=== PATIENT | male | born 1995 | race Caucasian/White ===

== ENCOUNTER 2022-02-25 18:14 | Emergency (ER) | payer OTHER, SELFPAY ==
[2022-02-25 18:15] VITALS: BP 144/99; PULSE 103; RESP 18; TEMP 36.8; O2SAT 97; BMI 30.3
--- NOTE | 2022-02-25 18:24 | PC.NURSE ---
ED MD AT BEDSIDE FOR EVALUATION
--- NOTE | 2022-02-25 18:28 | US_ITS ---
PROCEDURE INFORMATION: Exam: US Scrotum Exam date and time: 02/25/2022 6:46 PM Age: 26 years old Clinical indication: Scrotum pain; Patient HX: Lt test pain x 1 wk-- no fever swelling or inj TECHNIQUE: Imaging protocol: Real-time ultrasound of the scrotum and contents with color Doppler and image documentation. COMPARISON: ABDPELW CT ABD PELVIS W/ CONTRAST 06/27/2015 11:05 AM FINDINGS: Right testicle: Normal. No mass. No torsion. Normal vascular flow. 4.7 x 2.1 x 3.5 cm. Left testicle: Normal. No mass. No torsion. Normal vascular flow. 4.5 x 2.5 x 3.3 cm. Epididymides: Left epididymis is hypervascular suggesting epididymitis. Scrotum: Normal. IMPRESSION: 1. Left epididymitis. 2. No evidence of torsion.
--- NOTE | 2022-02-25 18:28 | PC.NURSE ---
RADIOLOGY NOTIFIED OF U/S ORDER
--- NOTE | 2022-02-25 18:31 | HMH.EDGENADL ---
ED Disposition Clinical Impression: Epididymitis Disposition: Home, Self-Care Condition on Discharge: Good Instructions: DI for Epididymitis Prescriptions: Doxycycline Monohydrate [Doxycycline Stoddard 100mg Tab] 100 mg PO Q12 #20 tab Transmission Status: Pending to [id number] Ibuprofen [Ibuprofen 800mg Tablet] 800 mg PO TIDP PRN #20 tab PRN Reason: Moderate Pain Transmission Status: Pending to [id number] Referrals: Tahir Berrios [Primary Care Provider] - Robson Jose MD [Staff Physician] - - Critical Care Critical Care Time: No Attestation: On , the high probability of a clinically significant, sudden or life threatening deterioration of the following system(s) required my full and direct attention, intervention and personal management. The time I documented below is in addition to time spent performing reported procedures but includes the following listed in this critical care notation. Medical Decision Making - Medical Records Medical records reviewed: Yes: I reviewed the patient's medical records. - Drake Inquiry Pt receiving controlled substance: No Vital Signs: 02/25/22 18:15 Temperature 98.3 F Temperature Source Oral Pulse Rate [Left Radial] 103 H Respiratory Rate 18 Blood Pressure [Right Arm] 144/99 H Blood Pressure Mean [Right Arm] 114 Blood Pressure Source [Right Arm] Automatic Cuff Blood Pressure Position [Right Arm] Sitting 02 Sat by Pulse Oximetry 97 Oxygen Delivery Method Room Air Orders (Tests/Meds): ED MEDICATIONS Discontinued Medications Generic Name Dose Route Start Last Admin Trade Name Freq PRN Reason Stop Dose Admin Ketorolac Tromethamine 30 mg 02/25/22 18:28 Ketorolac 30mg/Ml Vial IM 02/25/22 18:29 ONCE ONE ORDERS Category Date Time Status Urinalysis and Microscopic Stat Lab 02/25/22 18:28 Ordered GC Culture Only Stat Micro 02/25/22 19:05 Received - US Data US Images: Other (scrotum) ED US Reviewed: Yes: I have reviewed the patient's US results, I have viewed radiologist's interpretation Findings Narrative: IMPRESSION: 1. Left epididymitis. 2. No evidence of torsion. - Reevaluation(s) Time: 19:29 Reevaluation #1: On reevaluation, the patient is feeling better. I did have a discussion with the patient regarding diagnosis of epididymitis. Given his age range it is more commonly sexually transmitted. Patient states that he does have unprotected intercourse, however no history of STI. Patient was treated for this type of infection, however he was told he can follow-up in 2 days to obtain results. Patient was instructed to refrain from sexual activity for the duration of his antibiotics. Given strict return precautions. Verbalized understanding. Medical Decision Narrative: 26-year-old male presenting with left testicular pain. The patient does have some tenderness to palpation, however there are no masses or lesions. Concern for possible trauma or torsion. Urinalysis as well as ultrasound will be obtained. Patient provided analgesics General Adult HPI - General Chief complaint: Urogenital-Male Stated complaint: pain left testicle Time Seen by Provider: 02/25/22 18:20 Mode of Arrival: Ambulatory Limitations: No Limitations Description of Symptoms (Recalled from ER Triage Doc. by RN): c/o pain in left testicle that has been hurting for one week but the last few days the pain has increased and going into his leg and close to his butt hole area. No drainage from penis - History of Present Illness HPI narrative: 26-year-old male presented to the emergency department with some pain in his left testicle. The patient states that he has had this for the last week or so. He is concerned because it is not going away getting slightly worse. Is located in the bottom of his left testicle. Feels like it radiates into his perineum. He states that he has had some mild pain with urination, however no hesit
--- NOTE | 2022-02-25 18:45 | PC.NURSE ---
1840 PT TO U/S AT THIS TIME PER WC
[2022-02-25 19:46] VITALS: BP 139/87; PULSE 91; RESP 18; TEMP 36.8; O2SAT 97
[2022-02-26 09:03] LABS: Appearance,Urine TURBID (Clear); Bilirubin,Urine Negative (Negative); Blood, Urine Negative (Negative); Color,Urine YELLOW (Yellow); Glucose,Urine (UA) Negative (Negative); Ketones,Urine Negative (Negative); Leukocyte Esterase,Urine Negative (Negative); Microscopic, Urine URINE MICROSCOPIC (MICROSCOPIC); Nitrate,Urine Negative (Negative); PH,Urine 5.5 (5.0-8.5); Protein,Urine Negative (Negative); Specific Gravity, Urine >= 1.030 (1.005-1.030); Urobilinogen,Urine 0.2 EU/dl (0.2)
[2022-02-26 09:14] LABS: Amorphous Sediment,Urine 3+ /lpf; Bacteria,Urine Trace /lpf
== END 2022-02-25 19:59 | disposition home or self-care (01) ==
PROVIDERS: Emergency Provider Emergency Medicine; PCP Pediatrics
DX: N45.1 Epididymitis (principal); Z79.1 Long term (current) use of non-steroidal anti-inflammatories (NSAID)
CPT/HCPCS: 76870; 81001; 87081; 96372; 99285; J0696

== ENCOUNTER 2022-04-06 22:43 | Emergency (ER) | payer OTHER, SELFPAY ==
[2022-04-06 22:44] VITALS: BP 131/77; PULSE 95; RESP 16; TEMP 37.3; O2SAT 98; BMI 31.6
--- NOTE | 2022-04-06 23:07 | HMH.EDSKAF ---
Discharge Plan Disposition Patient Disposition: Home, Self-Care Prescriptions Prescriptions: New sulfamethoxazole-trimethoprim [Bactrim DS] 800-160 mg Tablet 1 tab PO Q12H Qty: 14 0RF clindamycin HCl 300 mg capsule 300 mg PO TID Qty: 30 0RF No Action ibuprofen 800 MG tablet 800 mg PO TIDP PRN (Reason: Moderate Pain) Qty: 20 0RF doxycycline monohydrate 100 MG tablet 100 mg PO Q12 Qty: 20 0RF Referrals Follow up/Referrals: Tahir Berrios [Primary Care Provider] - See instructions Clinical Impressions Clinical Impression: Cellulitis Instructions Patient Instructions: Cellulitis Discharge ED Provider: Shabbir Chapman Skin/Abscess/FB HPI General Chief complaint: Skin/Abscess/Foreign Body Stated complaint: Cyst on abdomin and rectum Time Seen by Provider: 04/06/22 23:07 Mode of Arrival: Ambulatory Source of Information: Patient and Medical Record Limitations: No Limitations Description of Symptoms (Recalled from ER Triage Doc. by RN): pt arrived with 2 cysts possible MRSA one is on the llq near the belt line aprox the size of a quarter the other it above his butthole pt stated that he attempted to use a hot compress to bring it to a head but it did not work History of Present Illness HPI narrative: has hx of mrsa and has tender redness lower lt abd and perineal area - no abscess MD complaint: abscess/boil Onset (ago): day(s) Location: buttocks Severity: moderate Associated symptoms: denies other symptoms Related Data Previous Rx's Medication Instructions Recorded doxycycline monohydrate 100 mg 100 mg PO Q12 #20 tabs 02/25/22 tablet ibuprofen 800 mg tablet 800 mg PO TIDP PRN Moderate Pain 02/25/22 #20 tabs clindamycin HCl 300 mg capsule 300 mg PO TID #30 caps 04/06/22 sulfamethoxazole 800 1 tab PO Q12H #14 tabs 04/06/22 mg-trimethoprim 160 mg tablet (Bactrim DS) Allergies Allergy/AdvReac Type Severity Reaction Status Date / Time No Known Allergies Allergy Unverified 07/08/17 15:20 PFSH PFSH Social History Smoking Status: Current every day smoker alcohol intake: never current occupational status: employed Travel in the last 8 weeks: None ROS Obtained: Yes All systems reviewed & no additional complaints except as documented Physical Exam General General appearance: alert Head Head exam: normocephalic Eye Eye exam: Present PERRL and EOMI ENT ENT exam: Present mucous membranes moist Neck Neck exam: Present trachea midline Respiratory Respiratory exam: Present normal lung sounds bilaterally Cardiovascular Cardiovascular exam: Present regular rate Extremities Exam Extremities exam: Present full ROM Neurological Exam Neurological exam: Present alert, oriented X3 and CN II-XII intact Psychiatric Psychiatric exam: Present normal affect Skin Skin exam: Present other (has 2 nickel sized area w/o abscess consistent with mrsa ) Medical Decision Making Medical Records Medical records reviewed: Yes I reviewed the patient's medical records. Drake Inquiry Pt receiving controlled substance: No Vital Signs: 04/06/22 22:44 Temperature 99.1 F Temperature Source Oral Pulse Rate [Left] 95 H Respiratory Rate 16 Blood Pressure [Right Arm] 131/77 Blood Pressure Mean [Right Arm] 95 02 Sat by Pulse Oximetry 98 Oxygen Delivery Method Room Air Lab Data Lab results reviewed: Yes I reviewed the patient's lab results. Medical Decision Narrative: has cellulitis consistent with mrsa Critical Care Time Critical Care Time Critical Care Time: No Attestation: On 04/06/22, the high probability of a clinically significant, sudden or life threatening deterioration of the following system(s) required my full and direct attention, intervention and personal management. The time I documented below is in addition to time spent performing reported procedures but includes the following listed in this critical care notation.
[2022-04-06 23:51] VITALS: BP 120/88; PULSE 86; RESP 16; TEMP 37.1; O2SAT 95
== END 2022-04-06 23:53 | disposition home or self-care (01) ==
PROVIDERS: Emergency Provider Emergency Medicine; PCP Pediatrics
DX: L02.31 Cutaneous abscess of buttock (principal); F17.210 Nicotine dependence, cigarettes, uncomplicated; Z79.1 Long term (current) use of non-steroidal anti-inflammatories (NSAID); Z79.899 Other long term (current) drug therapy; Z86.14 Personal history of Methicillin resistant Staphylococcus aureus infection
CPT/HCPCS: 99213; G0463